=== PATIENT | female | born 1995 | race Caucasian/White ===

== ENCOUNTER 2017-02-06 21:23 | Emergency (ER) | payer OTHER ==
[~2017-02-06] VITALS: Ht 152.4 cm; Wt 52.2 kg
[2017-02-06] MEDS ORDERED: ACYCLOVIR200 MG PO (21:57)
[2017-02-06] MEDS ORDERED: ANUSOL-HC25 MG PR (23:09)
[2017-02-06] MEDS ORDERED: MACROBID 100 M100 MG PO (23:09)
[2017-02-27] MEDS ORDERED: CEPHALEXIN500 MG PO (23:33)
== END 2017-02-06 23:24 | disposition home or self-care (01) ==
LOC: ED 21:23
DX: N39.0 Urinary tract infection, site not specified (principal); F17.200 Nicotine dependence, unspecified, uncomplicated; Z88.0 Allergy status to penicillin; Z88.2 Allergy status to sulfonamides; Z88.8 Allergy status to other drugs, medicaments and biological substances; Z79.899 Other long term (current) drug therapy
CPT/HCPCS: 81001; 84703; 87088; 99283

== ENCOUNTER 2017-06-08 10:16 | Emergency (ER) | payer OTHER ==
[~2017-06-08] VITALS: Ht 152.4 cm; Wt 54.4 kg
[~2017-06-08 10:16] MED LIST: ACYCLOVIR200 MG PO; ANUSOL-HC25 MG PR; CEPHALEXIN500 MG PO; MACROBID 100 M100 MG PO
[2017-06-08] MEDS ORDERED: PRILOSEC OTC20 MG PO (12:30)
[2017-06-08] MEDS ORDERED: ZOFRAN ODT4 MG PO (12:30)
== END 2017-06-08 12:51 | disposition home or self-care (01) ==
LOC: ED 10:16
DX: K21.0 Gastro-esophageal reflux disease with esophagitis (principal); K52.9 Noninfective gastroenteritis and colitis, unspecified; F17.200 Nicotine dependence, unspecified, uncomplicated; Z88.0 Allergy status to penicillin; Z88.2 Allergy status to sulfonamides; Z88.8 Allergy status to other drugs, medicaments and biological substances; Z79.899 Other long term (current) drug therapy
CPT/HCPCS: 80053; 81001; 83690; 85025; 96361; 96374; 96375; 99283; J1170; J2405; J7030